=== PATIENT | female | born 1935 | race Caucasian/White ===

== ENCOUNTER 2019-01-09 15:50 | Emergency (ER) | payer MEDICARE ==
[~2019-01-09] VITALS: Ht 160 cm; Wt 47.6 kg
[2019-01-09 17:05] LABS: Basophils # (auto) 0 uL; Basophils % (auto) 0.5 % (0.0-2.0); Eosinophils # (auto) 0 uL; Eosinophils % (auto) 0.4 % (0.0-7.0); Hematocrit 37.5 % (36.0-46.0); Hemoglobin 12.4 g/dL (12.2-16.2); Lymphocytes # (auto) 0.7 uL; Lymphocytes % (auto) 9.9 % (10.0-50.0); Mean Corpuscular Hgb Conc. 33.1 g/dL (32.0-36.0); Mean Corpuscular Volume 93.6 fL (80.0-100.0); Monocytes # (auto) 0.5 uL; Neutrophils # (auto) 5.5 uL; Neutrophils % (auto) 82.2 % (37.0-80.0); Nucleated Red Blood Cells % 0.1 %; Platelet Count (auto) 227 10^3/uL (140-450); Red Cell Distribution Width 14.3 % (11.8-14.3); White Blood Cell 6.7 10^3/uL (4.4-10.8)
[2019-01-09 17:19] LABS: Albumin 3.5 g/dL (3.4-5.0); Anion Gap 3 (5-15); Blood Urea Nitrogen 14 mg/dL (7-18); Calcium 8.4 mg/dL (8.5-10.1); Carbon Dioxide 28 mmol/L (21-32); Chloride 111 mmol/L (98-107); Glucose 97 mg/dL (74-106); Potassium 4.2 mmol/L (3.5-5.1); Sodium 142 mmol/L (136-145)
[2019-01-09 17:24] LABS: Alanine Aminotransferase 14 U/L (13-56); Alkaline Phosphatase 83 U/L (45-117); Aspartate Aminotransferase 20 U/L (15-37); BUN/Creatinine Ratio 13.5; Bilirubin, Total 0.3 mg/dL (0.2-1.0); GFR African American 65 mL/min; GFR Non-African American 54 mL/min; Total Protein 6.8 g/dL (6.4-8.2)
[2019-01-09 20:02] VITALS: BP 106/67
== END 2019-01-09 20:12 | disposition home or self-care (01) ==
LOC: EDBD 15:50 → ER 15:52
DX: R42 Dizziness and giddiness (principal); E86.0 Dehydration; Z90.49 Acquired absence of other specified parts of digestive tract; Z90.710 Acquired absence of both cervix and uterus
CPT/HCPCS: 36415; 70450; 80053; 84484; 85025; 93005

== ENCOUNTER 2019-09-12 12:11 | Emergency (ER) | payer OTHER, MEDICAID ==
[~2019-09-12] VITALS: Ht 160 cm; Wt 47.6 kg
[2019-09-12 16:21] VITALS: BP 111/73
== END 2019-09-12 17:42 | disposition home or self-care (01) ==
LOC: ER 12:11
DX: J02.9 Acute pharyngitis, unspecified (principal); Z90.49 Acquired absence of other specified parts of digestive tract
CPT/HCPCS: 70360

== ENCOUNTER 2021-12-26 16:47 | Inpatient (IN) | payer MEDICARE, MEDICAID ==
[~2021-12-26] VITALS: Ht 162.6 cm; Wt 52.5 kg
[2021-12-26 19:54] LABS: Basophils # (auto) 0.1 10 ^3/uL (0-0.2); Basophils % (auto) 0.9 % (0.0-2.0); Eosinophils # (auto) 0 10 ^3/uL (0-0.8); Eosinophils % (auto) 0.7 % (0.0-7.0); Hematocrit 38.5 % (36.0-46.0); Hemoglobin 12.7 g/dL (12.2-16.2); Lymphocytes # (auto) 1.1 10 ^3/uL (0.4-5.4); Lymphocytes % (auto) 16.8 % (10.0-50.0); Mean Corpuscular Hemoglobin 27.5 pg (28.0-32.0); Mean Corpuscular Hgb Conc. 32.9 g/dL (32.0-36.0); Mean Corpuscular Volume 83.6 fL (80.0-100.0); Monocytes # (auto) 0.4 10 ^3/uL (0-1.3); Monocytes % (auto) 7.2 % (0.0-12.0); Neutrophils # (auto) 4.7 10 ^3/uL (1.6-8.6); Neutrophils % (auto) 74.4 % (37.0-80.0); Red Blood Cells 4.61 10^6/uL (4.0-5.20); Red Cell Distribution Width 16.7 % (11.8-14.3); White Blood Cell 6.3 10^3/uL (4.4-10.8)
[2021-12-26 20:16] LABS: Albumin 3.1 g/dL (3.4-5.0); Calcium 8.6 mg/dL (8.5-10.1); Magnesium 2.5 mg/dL (1.6-2.6); Potassium 3.9 mmol/L (3.5-5.1)
[2021-12-26 20:20] LABS: BUN/Creatinine Ratio 29.9; Bilirubin, Total 0.4 mg/dL (0.2-1.0); Total Protein 7.8 g/dL (6.4-8.2)
[2021-12-26] MEDS ORDERED: IOHEXOL 350 MG/ML 100ML IJ ONE (23:11)
[2021-12-26] MEDS ORDERED: DOCUSATE SOD 100 MG CAP PO PRN (23:15)
[2021-12-26] MEDS ORDERED: HYDROcodone-ACET 5/325MG TAB PO PRN (23:15)
[2021-12-26] MEDS ORDERED: ONDANSETRON HCL 4 MG/2 ML VIAL IV PRN (23:15)
[2021-12-26] MEDS ORDERED: ACETAMINOPHEN 325 MG TAB PO PRN (23:15)
[2021-12-26] MEDS ORDERED: ALBUMIN 25% 100 ML IV ONE (23:15)
[2021-12-27] MEDS ORDERED: NITROGLYCERIN 0.4 MG SL TAB SL PRN (02:15)
[2021-12-27] MEDS ORDERED: MORPHINE SULFATE INJ 2 MG/ml SYRG IV PRN (02:15)
[2021-12-27 05:11] LABS: Basophils # (auto) 0 10 ^3/uL (0-0.2); Basophils % (auto) 0.6 % (0.0-2.0); Eosinophils # (auto) 0.1 10 ^3/uL (0-0.8); Eosinophils % (auto) 1.8 % (0.0-7.0); Hematocrit 32.8 % (36.0-46.0); Hemoglobin 10.7 g/dL (12.2-16.2); Lymphocytes # (auto) 0.8 10 ^3/uL (0.4-5.4); Lymphocytes % (auto) 12.8 % (10.0-50.0); Mean Corpuscular Hemoglobin 27.2 pg (28.0-32.0); Mean Corpuscular Hgb Conc. 32.5 g/dL (32.0-36.0); Mean Corpuscular Volume 83.8 fL (80.0-100.0); Monocytes # (auto) 0.4 10 ^3/uL (0-1.3); Monocytes % (auto) 6.6 % (0.0-12.0); Neutrophils # (auto) 5.1 10 ^3/uL (1.6-8.6); Neutrophils % (auto) 78.2 % (37.0-80.0); Red Blood Cells 3.91 10^6/uL (4.0-5.20); Red Cell Distribution Width 16.8 % (11.8-14.3); White Blood Cell 6.5 10^3/uL (4.4-10.8)
[2021-12-27] MEDS ORDERED: ENOXAPARIN SOD 100 MG/1 ML SYRINGE SC ONE (05:30)
[2021-12-27 05:50] LABS: Potassium 3.7 mmol/L (3.5-5.1)
[2021-12-27 06:00] LABS: Albumin 3.2 g/dL (3.4-5.0); BUN/Creatinine Ratio 25.7; Bilirubin, Total 0.5 mg/dL (0.2-1.0); Calcium 8.4 mg/dL (8.5-10.1); Total Protein 6.8 g/dL (6.4-8.2)
[2021-12-27] MEDS: SODIUM CHLOR 0.9% PF (SALINE LOCK) 10ML VIAL/SYR IV SCH ×3 (06:22→21:16)
[2021-12-27] MEDS: FAMOTIDINE (10MG/ML) 2ML VL IV SCH (10:00)
[2021-12-27] MEDS: ENOXAPARIN SOD 60 MG/0.6 ML SYRINGE SC SCH ×2 (10:00→21:17)
[2021-12-27 15:40] VITALS: BP 134/76
[2021-12-27 17:00] VITALS: BP 134/76
[2021-12-27] MEDS: QUEtiapine FUMARATE 25 MG TAB PO SCH (21:17)
[2021-12-28] MEDS: SODIUM CHLOR 0.9% PF (SALINE LOCK) 10ML VIAL/SYR IV SCH ×3 (05:08→21:08)
[2021-12-28 05:46] VITALS: BP 125/65
[2021-12-28 06:42] LABS: Basophils # (auto) 0 10 ^3/uL (0-0.2); Basophils % (auto) 0.9 % (0.0-2.0); Eosinophils # (auto) 0.1 10 ^3/uL (0-0.8); Eosinophils % (auto) 3.1 % (0.0-7.0); Hematocrit 33.9 % (36.0-46.0); Hemoglobin 11.1 g/dL (12.2-16.2); Lymphocytes # (auto) 0.9 10 ^3/uL (0.4-5.4); Mean Corpuscular Hemoglobin 27.5 pg (28.0-32.0); Mean Corpuscular Hgb Conc. 32.7 g/dL (32.0-36.0); Mean Corpuscular Volume 84.1 fL (80.0-100.0); Monocytes # (auto) 0.3 10 ^3/uL (0-1.3); Monocytes % (auto) 7.5 % (0.0-12.0); Neutrophils # (auto) 2.9 10 ^3/uL (1.6-8.6); Neutrophils % (auto) 68.5 % (37.0-80.0); Nucleated Red Blood Cells % 0.1 %; Red Blood Cells 4.03 10^6/uL (4.0-5.20); White Blood Cell 4.3 10^3/uL (4.4-10.8)
[2021-12-28 07:00] LABS: Potassium 4.2 mmol/L (3.5-5.1)
[2021-12-28 07:07] LABS: BUN/Creatinine Ratio 21.7; Calcium 8.5 mg/dL (8.5-10.1)
[2021-12-28 09:00] VITALS: BP 137/66
[2021-12-28] MEDS: FAMOTIDINE (10MG/ML) 2ML VL IV SCH (09:30)
[2021-12-28] MEDS: ENOXAPARIN SOD 60 MG/0.6 ML SYRINGE SC SCH ×2 (09:30→21:08)
[2021-12-28 13:00] VITALS: BP 119/55
[2021-12-28 17:00] VITALS: BP 108/56
[2021-12-28] MEDS: QUEtiapine FUMARATE 25 MG TAB PO SCH (21:08)
[2021-12-28 21:24] VITALS: BP 112/60
[2021-12-29 04:29] VITALS: BP 133/64
[2021-12-29] MEDS: SODIUM CHLOR 0.9% PF (SALINE LOCK) 10ML VIAL/SYR IV SCH ×3 (05:08→21:34)
[2021-12-29 08:00] VITALS: BP 112/63
[2021-12-29 09:00] VITALS: BP 112/63
[2021-12-29] MEDS: FAMOTIDINE (10MG/ML) 2ML VL IV SCH (10:22)
[2021-12-29] MEDS: ENOXAPARIN SOD 60 MG/0.6 ML SYRINGE SC SCH (10:22)
[2021-12-29 13:00] VITALS: BP 118/63
[2021-12-29 17:00] VITALS: BP 131/60
[2021-12-29] MEDS: APIXABAN 5 MG TAB PO SCH (21:34)
[2021-12-29] MEDS: QUEtiapine FUMARATE 25 MG TAB PO SCH (21:34)
[2021-12-29 22:00] VITALS: BP 126/66
[2021-12-30 05:00] VITALS: BP 130/65
[2021-12-30] MEDS: SODIUM CHLOR 0.9% PF (SALINE LOCK) 10ML VIAL/SYR IV SCH ×3 (05:16→21:05)
[2021-12-30 08:00] VITALS: BP 126/65
[2021-12-30 08:30] VITALS: BP 126/65
[2021-12-30] MEDS: FAMOTIDINE (10MG/ML) 2ML VL IV SCH (09:17)
[2021-12-30] MEDS: APIXABAN 5 MG TAB PO SCH ×2 (09:17→21:04)
[2021-12-30 13:00] VITALS: BP 125/62
[2021-12-30 17:30] VITALS: BP 131/78
[2021-12-30] MEDS: QUEtiapine FUMARATE 25 MG TAB PO SCH (21:05)
[2021-12-30 22:00] VITALS: BP 128/60
[2021-12-31 05:00] VITALS: BP 141/69
[2021-12-31] MEDS: SODIUM CHLOR 0.9% PF (SALINE LOCK) 10ML VIAL/SYR IV SCH (05:00)
[2021-12-31 08:30] VITALS: BP 126/65
[2021-12-31 09:28] VITALS: BP 137/70
[2021-12-31] MEDS: FAMOTIDINE (10MG/ML) 2ML VL IV SCH (11:06)
[2021-12-31] MEDS: APIXABAN 5 MG TAB PO SCH (11:07)
[2021-12-31 13:48] VITALS: BP 107/64
== END 2021-12-31 14:15 | DRG 175 ==
LOC: ER 16:47 → EDBD 16:47 → UNDOADMIN 12-27 02:03 → OVERFLOW 12-27 02:03 → TELE-WESTW 12-27 15:39
PROVIDERS: ADMIT Nurse Practitioner Family; ATTEND Internal Medicine Geriatric Medicine
DX: I26.99 Other pulmonary embolism without acute cor pulmonale (principal); J96.01 Acute respiratory failure with hypoxia; S72.492 Other fracture of lower end of left femur; E44.1 Mild protein-calorie malnutrition; J90 Pleural effusion, not elsewhere classified; J98.11 Atelectasis; Z20.822 Contact with and (suspected) exposure to COVID-19; R26.9 Unspecified abnormalities of gait and mobility; F03.90 Unspecified dementia, unspecified severity, without behavioral disturbance, psychotic disturbance, mood disturbance, and anxiety; E88.09 Other disorders of plasma-protein metabolism, not elsewhere classified; E87.6 Hypokalemia; W18.39XA Other fall on same level, initial encounter; D64.9 Anemia, unspecified; E87.8 Other disorders of electrolyte and fluid balance, not elsewhere classified; Z79.01 Long term (current) use of anticoagulants; Z87.891 Personal history of nicotine dependence; Z90.710 Acquired absence of both cervix and uterus; Z90.49 Acquired absence of other specified parts of digestive tract; Y93.89 Activity, other specified; Y92.89 Other specified places as the place of occurrence of the external cause; Y99.8 Other external cause status; Z68.20 Body mass index [BMI] 20.0-20.9, adult
CPT/HCPCS: 36415; 71045; 71275; 73562; 80048; 80053; 83735; 83880; 84484; 85025; 85379; 87081; 87426; 93005; 93970; 96365; 96372; 96375; 97163; G0378; J3490; P9047